=== PATIENT | female | born 1995 | race Two or more races ===

== ENCOUNTER 2017-08-21 17:45 | Emergency (ER) | payer OTHER, MEDICAID ==
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
[2017-08-21 19:54] VITALS: BP 117/67
== END 2017-08-21 20:10 | disposition home or self-care (01) ==
LOC: ER 17:45
DX: O9A.211 Injury, poisoning and certain other consequences of external causes complicating pregnancy, first trimester (principal); S40.011A Contusion of right shoulder, initial encounter; S30.1XXA Contusion of abdominal wall, initial encounter; M25.552 Pain in left hip; V89.2XXA Person injured in unspecified motor-vehicle accident, traffic, initial encounter; Z87.891 Personal history of nicotine dependence
CPT/HCPCS: 99283

== ENCOUNTER 2017-08-27 17:18 | Emergency (ER) | payer MEDICAID, OTHER ==
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
[2017-08-27 19:10] LABS: ABSOLUTE BASOPHILS # (AUTO) 0.1 10^3/uL (0.0-0.2); ABSOLUTE EOSINOPHILS # (AUTO) 0.2 10^3/uL (0.0-0.6); ABSOLUTE LYMPHOCYTES (AUTO) 2.1 10^3/uL (0.5-4.7); ABSOLUTE MONOCYTES (AUTO) 0.8 10^3/uL (0.1-1.4); ABSOLUTE NEUT (AUTO) 9.5 10^3/uL (1.7-8.2); BASOPHILS % (AUTO) 0.4 % (0-2); EOSINOPHILS % (AUTO) 1.9 % (0-6); HEMATOCRIT 40.6 % (36.0-47.0); HEMOGLOBIN 13.8 g/dL (12.0-15.5); LYMPHOCYTES % (AUTO) 16.6 % (13-45); MEAN CORPUSCULAR HEMOGLOBIN 31.6 pg (27.0-33.4); MEAN CORPUSCULAR HGB CONC 34.1 g/dL (32.0-36.0); MEAN CORPUSCULAR VOLUME 93 fl (80-97); MONOCYTES % (AUTO) 6.2 % (3-13); PLATELET COUNT 295 10^3/uL (150-450); RED BLOOD COUNT 4.38 10^6/uL (3.72-5.28); RED CELL DISTRIBUTION WIDTH 13.6 % (11.5-14.0); SEGMENTED NEUTROPHILS % (AUTO) 74.9 % (42-78); TOTAL CELLS COUNTED % (AUTO) 100 %; WHITE BLOOD COUNT 12.7 10^3/uL (4.0-10.5)
[2017-08-27 19:28] LABS: ALANINE AMINOTRANSFERASE 19 U/L (9-52); ALBUMIN 4.2 g/dL (3.5-5.0); ALKALINE PHOSPHATASE 62 U/L (38-126); ANION GAP 10 (5-19); ASPARTATE AMINO TRANSFERASE 20 U/L (14-36); BILIRUBIN,DIRECT 0.3 mg/dL (0.0-0.4); BILIRUBIN,TOTAL 0.4 mg/dL (0.2-1.3); BLOOD UREA NITROGEN 9 mg/dL (7-20); CALCIUM 9.9 mg/dL (8.4-10.2); CARBON DIOXIDE 25 mmol/L (22-30); CHLORIDE 106 mmol/L (98-107); GLUCOSE 84 mg/dL (75-110); POTASSIUM 4.1 mmol/L (3.6-5.0); SODIUM 140.5 mmol/L (137-145)
[2017-08-27 19:56] LABS: APPEARANCE,URINE CLEAR; BILIRUBIN,URINE NEGATIVE (NEGATIVE); COLOR,URINE STRAW; GLUCOSE, URINE NEGATIVE (NEGATIVE); KETONES,URINE NEGATIVE (NEGATIVE); LEUKOCYTE ESTERASE,URINE SMALL (NEGATIVE); NITRITE,URINE NEGATIVE (NEGATIVE); PROTEIN,URINE NEGATIVE (NEGATIVE); URINE SPECIFIC GRAVITY 1.003; UROBILINOGEN,URINE NEGATIVE mg/dL (<2.0)
--- NOTE | 2017-08-27 21:44 | RADIOLOGY REPORT (SQ) ---
EXAM DESCRIPTION: U/S OB TRANSVAGINAL W/O DOP COMPLETED DATE/TIME: 08/27/2017 9:05 pm REASON FOR STUDY: pelvic pain vaginal bleeding COMPARISON: None. TECHNIQUE: Transvaginal static and realtime grayscale images acquired of the pelvis. Additional janeth cted spectral and color Doppler images recorded. All images stored on PACs. [id number] LIMITATIONS: None. FINDINGS: FETUS: Intrauterine . EGA: 6 weeks 4 days CHUCK: 04/18/2018 FHR: Not identified at this time. SUBCHORIONIC BLEED: No SIZE OF BLEED: Not applicable. UTERUS: No masses. No anomalies. CERVICAL LENGTH: 2.6 cm Closed. RIGHT ADNEXA: Ovary not identified. No adnexal free fluid. No adnexal masses. LEFT ADNEXA: Ovary not identified. No adnexal free fluid. No adnexal masses. FREE FLUID: None. OTHER: No other significant finding. CERVICAL LENGTH: 2.6 cm Closed. IMPRESSION: INTRAUTERINE . FHR: Not identified at this time. EGA 6 weeks 4 days Trimester of : First - 0 to 13 weeks. TECHNICAL DOCUMENTATION: JOB ID: [id number] [place]-72 2010 [employer]- All Rights Reserved Reading location - IP/workstation name: Sun Number
[2017-08-27 22:42] VITALS: BP 125/70
== END 2017-08-27 22:30 | disposition home or self-care (01) ==
LOC: ER 17:18
DX: O46.91 Antepartum hemorrhage, unspecified, first trimester (principal); O26.891 Other specified pregnancy related conditions, first trimester; R10.2 Pelvic and perineal pain; F17.210 Nicotine dependence, cigarettes, uncomplicated; Z3A.01 Less than 8 weeks gestation of pregnancy
CPT/HCPCS: 36415; 76817; 80053; 81001; 84702; 85025; 99284; 99406

== ENCOUNTER 2018-02-16 23:06 | Emergency (ER) | payer MEDICAID ==
--- NOTE | 2018-02-17 00:40 | ER Document Report ---
ED General - General Chief Complaint: Painful Cough Stated Complaint: COUGHING UP BLOOD Time Seen by Provider: 02/17/18 00:31 Notes: Patient is a 22-year-old female presents with complaint of cough for approximately 3 days. Said with all the coughing she developed some pain in her left rib. She said whenever she moves or coughs it hurts. She is a smoker. She has history of asthma but has not had use inhaler since she was 12 years old. She says today she brought up some blood 3 times when she coughed. She said there were small clots. No fevers. No vomiting. No diarrhea. Her no other complaints at this time. She denies any travel outside the country. She does not work in a healthcare facility. TRAVEL OUTSIDE OF THE [place] IN LAST 30 DAYS: No - Related Data Allergies/Adverse Reactions: No Known Drug Allergies Allergy (Verified 08/27/17 17:19) Past Medical History - Social History Smoking Status: Current Every Day Smoker Chew tobacco use (# tins/day): No Frequency of alcohol use: None Drug Abuse: None Family History: CAD, Hyperlipidemia, Hypertension. denies: Arthritis, COPD, CVA , DM, Malignancy, Thyroid Disfunction Patient has suicidal ideation: No Patient has homicidal ideation: No Renal/ Medical History: Denies: Hx Peritoneal Dialysis Psychiatric Medical History: Reports: Hx Depression - Immunizations Immunizations up to date: Yes Hx Diphtheria, Pertussis, Tetanus Vaccination: Yes - 04/11/13 Review of Systems - Review of Systems Notes: My Normal Review Basic REVIEW OF SYSTEMS: CONSTITUTIONAL : Denies fever, chills, or sweats. Denies recent illness. EENT: Denies eye, ear, throat, or mouth pain or symptoms. Denies nasal or sinus congestion. CARDIOVASCULAR: Pain over left ribs. RESPIRATORY: Cough. GASTROINTESTINAL: Denies abdominal pain. Denies nausea, vomiting, or diarrhea. SKIN: Denies rash or skin lesions. NEUROLOGICAL: Denies altered mental status or loss of consciousness. Denies headache. Denies weakness or paralysis or loss of use of either side. Denies problems with gait or speech. Denies sensory or motor loss. ALL OTHER SYSTEMS REVIEWED AND NEGATIVE. Physical Exam - Vital signs Vitals: Temp Pulse Resp BP Pulse Ox 98.8 F 66 16 126/69 H 100 02/17/18 00:09 02/17/18 00:09 02/17/18 00:09 02/17/18 00:09 02/17/18 00:09 - Notes Notes: General Appearance: Well nourished, alert, cooperative, no acute distress, no obvious discomfort. Vitals: reviewed, See vital signs table. Head: no swelling or tenderness to the head Eyes: PERRL, EOMI, Conjuctiva clear Mouth: No decreasd moisture Throat: No tonsillar inflammation, No airway obstruction, Chest wall: Pain to palpation of her left lower ribs. Neck: Supple, no neck tenderness, No thyromegaly Lungs: No wheezing, No rales, No rhonci, No accessory muscle use, good air exchange bilaterally. Heart: Normal rate, Regular rythm, No murmur, no rub Skin: warm, dry, appropriate color, no rash Neuro: speech clear, oriented x 3, normal affect, responds appropriately to questions. Course - Re-evaluation Re-evalutation: 02/17/18 05:19 Patient does look very well during her stay in the ER. Lung feels just a very slight wheezing. I will give her albuterol inhaler. I informed her she needs to quit smoking. She has no risk factors for TB. Her chest x-ray is negative. And told her that she needs to quit smoking or she will continue have worsening difficulty breathing and future problems such as infections in her lungs. I suspect that the small amount of blood that she coughed up earlier is related to the frequent recurrent coughing that she has had over the last several days. The pain in her left side is very easily reproduced with palpation and is most likely irritation to her rib cage from recurrent coughing. I do not suspect PE as she is not tachypneic, not tachycardic, not hypoxemic, she does not have any leg pain or leg swelling. I informed her return to ER immediately if she has difficulty breathing, recurrent wheezing, recurrence of coughing up of blood, fevers, or she feels that she is worsening in any way. Patient agrees with plan will be discharged home. Dictation of this chart was performed using voice recognition software; therefore, there may be some unintended grammatical errors. - Vital Signs Vital signs: Temp Pulse Resp BP Pulse Ox 98.6 F 74 16 114/73 98 02/17/18 03:42 02/17/18 03:42 10/03/18 03:42 02/17/18 03:42 02/17/18 03:42 Discharge - Discharge Clinical Impression: Cough Condition: Good Disposition: HOME, SELF-CARE Additional Instructions: Please return to the ER immediately if you develop difficulty breathing, fevers , recurrence of bloody sputum, or if you feel that you are worsening in any way. Please use the inhaler as 2 puffs as needed for coughing or wheezing not to exceed 2 puffs every 2 hours. Please stop smoking. Forms: Return to Work
--- NOTE | 2018-02-17 03:00 | RADIOLOGY REPORT (SQ) ---
EXAM DESCRIPTION: XR CHEST 2 VIEWS COMPLETED DATE/TME: 02/17/2018 00:37 CLINICAL HISTORY: cough COMPARISON: None. FINDINGS: Frontal and lateral views of the chest. The cardiomediastinal silhouette has normal size and contour. No consolidation, pneumothorax, or pleural effusion. No displaced rib fractures identified. Upper abdominal soft tissues are unremarkable. IMPRESSION: 1. No acute pulmonary process identified.
[2018-02-17 03:42] VITALS: BP 114/73
[2018-02-17] MEDS ORDERED: ALBUTEROL SULFATE HFA (90 MCG/PUFF) 8 GM MDI (1 MDI/ER DISP) IH ONE (03:53)
== END 2018-02-17 04:01 | disposition home or self-care (01) ==
LOC: ER 23:06
DX: R05 Cough (principal); R06.2 Wheezing; F17.200 Nicotine dependence, unspecified, uncomplicated
CPT/HCPCS: 99283; 71046; J3490

== ENCOUNTER 2019-01-27 02:38 | Emergency (ER) | payer MEDICAID ==
[2019-01-27 02:46] VITALS: BP 109/62
[2019-01-27] MEDS ORDERED: NORMAL SALINE 1000 ML 1,000 ML IV PRN (04:48)
[2019-01-27] MEDS ORDERED: KETOROLAC TROMETHAMINE INJ/PF 30 MG/1 ML SDV IV ONE (04:48)
== END 2019-01-27 05:17 | disposition left against medical advice (07) ==
LOC: ER 02:38
DX: Z53.21 Procedure and treatment not carried out due to patient leaving prior to being seen by health care provider (principal)

== ENCOUNTER 2019-04-17 22:45 | Emergency (ER) | payer SELFPAY ==
--- NOTE | 2019-04-17 23:37 | EKG REPORT ---
SEVERITY:- BORDERLINE ECG - SINUS RHYTHM PROBABLE LEFT ATRIAL ABNORMALITY : Confirmed by: Tu Lorenzana 17-Apr-2019 23:34:38
[2019-04-17] MEDS ORDERED: NORMAL SALINE 1000 ML 1,000 ML IV ONE (23:50)
[2019-04-18 00:01] LABS: APPEARANCE,URINE SLIGHTLY-CLOUDY; BILIRUBIN,URINE NEGATIVE (NEGATIVE); COLOR,URINE YELLOW; GLUCOSE, URINE NEGATIVE (NEGATIVE); KETONES,URINE NEGATIVE (NEGATIVE); LEUKOCYTE ESTERASE,URINE NEGATIVE (NEGATIVE); NITRITE,URINE NEGATIVE (NEGATIVE); PROTEIN,URINE NEGATIVE (NEGATIVE); URINE SPECIFIC GRAVITY 1.016
[2019-04-18 00:04] LABS: ABSOLUTE EOSINOPHILS # (AUTO) 0.3 10^3/uL (0.0-0.6); ABSOLUTE LYMPHOCYTES (AUTO) 2.1 10^3/uL (0.5-4.7); ABSOLUTE MONOCYTES (AUTO) 0.7 10^3/uL (0.1-1.4); ABSOLUTE NEUT (AUTO) 4.5 10^3/uL (1.7-8.2); BASOPHILS % (AUTO) 0.5 % (0-2); EOSINOPHILS % (AUTO) 4.1 % (0-6); HEMATOCRIT 39.3 % (36.0-47.0); HEMOGLOBIN 13.5 g/dL (12.0-15.5); LYMPHOCYTES % (AUTO) 27.3 % (13-45); MEAN CORPUSCULAR HEMOGLOBIN 30.9 pg (27.0-33.4); MEAN CORPUSCULAR HGB CONC 34.4 g/dL (32.0-36.0); MEAN CORPUSCULAR VOLUME 90 fl (80-97); PLATELET COUNT 269 10^3/uL (150-450); RED BLOOD COUNT 4.38 10^6/uL (3.72-5.28); RED CELL DISTRIBUTION WIDTH 14.1 % (11.5-14.0); SEGMENTED NEUTROPHILS % (AUTO) 59.1 % (42-78); TOTAL CELLS COUNTED % (AUTO) 100 %; WHITE BLOOD COUNT 7.5 10^3/uL (4.0-10.5)
[2019-04-18 00:07] LABS: ALBUMIN 3.8 g/dL (3.5-5.0); ALKALINE PHOSPHATASE 64 U/L (38-126); ANION GAP 10 (5-19); ASPARTATE AMINO TRANSFERASE 108 U/L (14-36); BILIRUBIN,DIRECT 0.3 mg/dL (0.0-0.4); BILIRUBIN,TOTAL 0.9 mg/dL (0.2-1.3); BLOOD UREA NITROGEN 12 mg/dL (7-20); CARBON DIOXIDE 21 mmol/L (22-30); CHLORIDE 108 mmol/L (98-107); GLUCOSE 88 mg/dL (75-110); POTASSIUM 3.5 mmol/L (3.6-5.0); TOTAL PROTEIN 6.8 g/dL (6.3-8.2)
[2019-04-18 00:12] LABS: ACETAMINOPHEN < 10 ug/mL (10-30); ALCOHOL < 10 mg/dL (NONE DETECTED); SALICYLATE < 1.0 mg/dL (2.0-20.0)
[2019-04-18 00:14] LABS: URINE BARBITURATES SCREEN NEGATIVE; URINE BENZODIAZEPINES SCREEN NEGATIVE; URINE METHADONE SCREEN NEGATIVE; URINE PHENCYCLIDINE SCREEN NEGATIVE
[2019-04-18 00:25] LABS: URINE COCAINE SCREEN UNCONFIRMED POSITIVE
[2019-04-18 00:27] LABS: URINE MARIJUANA (THC) SCREEN UNCONFIRMED POSITIVE
--- NOTE | 2019-04-18 01:13 | ER Document Report ---
ED General - General Chief Complaint: Overdose Stated Complaint: POSSIBLE OVERDOSE Time Seen by Provider: 04/17/19 23:26 TRAVEL OUTSIDE OF THE [place] IN LAST 30 DAYS: No - HPI Notes: Patient is a 23-year-old female who presents emergency department for evaluation after an overdose. She is an IV heroin user. She also admits to marijuana use. She injected with her boyfriend, who noted that she "fell out" and started CPR. She was administered Narcan and brought to the emergency department for further evaluation. The patient states this is a new bag of heroin, it seemed "whiter" and some of the other bags she is used in the past. She has absolutely no interest in getting any information in regards to quitting her drug use. She denies any suicidal or homicidal ideation. No visual auditory hallucination. - Related Data Allergies/Adverse Reactions: No Known Drug Allergies Allergy (Verified 01/27/19 02:39) Past Medical History - General Information source: Patient - Social History Smoking Status: Current Every Day Smoker Drug Abuse: Heroin, Marijuana Family History: CAD, Hyperlipidemia, Hypertension. denies: Arthritis, COPD, CVA, DM, Malignancy, Thyroid Disfunction Patient has suicidal ideation: No Patient has homicidal ideation: No Pulmonary Medical History: Reports: Hx Asthma Renal/ Medical History: Denies: Hx Peritoneal Dialysis Psychiatric Medical History: Reports: Hx Depression - Immunizations Immunizations up to date: Yes Hx Diphtheria, Pertussis, Tetanus Vaccination: Yes - 04/11/13 Review of Systems - Review of Systems Constitutional: No symptoms reported Cardiovascular: No symptoms reported Respiratory: See HPI Gastrointestinal: No symptoms reported Genitourinary: No symptoms reported Musculoskeletal: No symptoms reported Skin: No symptoms reported Neurological/Psychological: See HPI Physical Exam - Vital signs Vitals: Temp 98.3 F 04/17/19 22:50 - Notes Notes: This is a 23-year-old female who appears her stated age, in no acute distress. She is awake and alert, cooperative with examiner. Vital signs reviewed, please refer to chart. Head is normocephalic, atraumatic. Pupils equal round, reactive to light. Neck is supple without meningismus. Heart is regular rate and rhythm. Lungs are clear to auscultation bilaterally. Abdomen is soft, nontender, normoactive bowel sounds throughout. Extremities without cyanosis, clubbing. Posterior calves are nontender. Peripheral pulses are equal. Skin is warm and dry. Patient is awake, alert, neurological exam is nonfocal. Course - Re-evaluation Re-evalutation: 04/18/19 01:11 Patient presents emergency department for evaluation. Laboratory investigations were obtained, the patient was placed on monitor. Labs revealed a positive screen for cocaine and marijuana, negative for opiates. I explained to the patient that she should try to consider quitting using illicit drugs. She states she is not interested in any sort of outpatient treatment programs at this time. She is to follow-up with primary care, return to the ED with worsening or concerning symptoms of any sort. - Vital Signs Vital signs: Temp Pulse Resp BP Pulse Ox 98.3 F 19 135/86 H 98 04/17/19 22:50 04/17/19 23:01 04/17/19 23:00 04/17/19 23:01 - Laboratory Result Diagrams: 04/17/19 22:55 04/17/19 22:55 Laboratory results interpreted by me: 04/17/19 04/17/19 04/17/19 22:55 22:55 23:25 RDW 14.1 H Potassium 3.5 L Chloride 108 H Carbon Dioxide 21 L AST 108 H Urine Urobilinogen 4.0 H Salicylates < 1.0 L Acetaminophen < 10 L - EKG Interpretation by Me Additional EKG results interpreted by me: 04/18/19 01:12 Sinus mechanism with a rate of 91 bpm. Normal axis and intervals. Nonspecific ST changes, but no acute changes concerning for ischemia or infarction. Discharge - Discharge Clinical Impression: Opiate overdose Qualifiers: Encounter type: initial encounter Injury intent: accidental or unintentional Qualified Code(s): T40.601A - Poisoning by unspecified narcotics, accidental (unintentional), initial encounter Condition: Stable Disposition: HOME, SELF-CARE Instructions: Overdose ([facility]) Additional Instructions: Please consider quitting using drugs. Follow-up with primary care next week. Return to the ED with worsening or new concerning symptoms of any sort.
[2019-04-18 01:21] VITALS: BP 141/81
== END 2019-04-18 01:25 | disposition home or self-care (01) ==
LOC: ER 22:45
DX: T40.1X1A Poisoning by heroin, accidental (unintentional), initial encounter (principal); F12.10 Cannabis abuse, uncomplicated; F17.200 Nicotine dependence, unspecified, uncomplicated; J45.909 Unspecified asthma, uncomplicated
CPT/HCPCS: 93005; 99284; 96360; 36415; 80307 ×4; 84703; 85025; 80053; 81001; 93010; J7030

== ENCOUNTER 2019-07-05 04:53 | Emergency (ER) | payer SELFPAY ==
[2019-07-05] MEDS ORDERED: FAMOTIDINE INJ/PF 20 MG/2 ML SDV IV ONE (05:03)
[2019-07-05] MEDS ORDERED: METHYLPREDNISOLONE INJ 125 MG/2 ML SDV IV ONE (05:03)
[2019-07-05] MEDS ORDERED: DIPHENHYDRAMINE HCL 50 MG/ML VIAL IV ONE (05:03)
[2019-07-05] MEDS ORDERED: EPINEPHRINE INJ/PF 1 MG/1 ML AMPULE IM ONE (05:05)
[2019-07-05] MEDS ORDERED: NORMAL SALINE 1000 ML 1,000 ML IV ONE (05:42)
--- NOTE | 2019-07-05 06:04 | ER Document Report ---
ED General - General Chief Complaint: Allergic Reaction Stated Complaint: POSSIBLE ALLERGIC REACTION Time Seen by Provider: 07/05/19 05:03 Notes: 24 year old female presents to the ED complaining of burning skin, shortness of breath and difficulty swallowing after spraying a spray to help treat lice all over her house. She states she sprayed it earlier in the day and thinks she may have sat in it too long. States that her symptoms only started approximately 15 minutes prior to arrival. Has no history of allergic reaction. TRAVEL OUTSIDE OF THE [place] IN LAST 30 DAYS: No - Related Data Allergies/Adverse Reactions: No Known Drug Allergies Allergy (Verified 01/27/19 02:39) Past Medical History - General Information source: Patient - Social History Smoking Status: Current Every Day Smoker Drug Abuse: Heroin Family History: CAD, Hyperlipidemia, Hypertension. denies: Arthritis, COPD, CVA, DM, Malignancy, Thyroid Disfunction Patient has suicidal ideation: No Patient has homicidal ideation: No Pulmonary Medical History: Reports: Hx Asthma Renal/ Medical History: Denies: Hx Peritoneal Dialysis Psychiatric Medical History: Reports: Hx Depression - Immunizations Immunizations up to date: Yes Hx Diphtheria, Pertussis, Tetanus Vaccination: Yes - 04/11/13 Review of Systems - Review of Systems Constitutional: No symptoms reported EENT: See HPI, Difficulty swallowing Respiratory: See HPI, Short of breath Gastrointestinal: No symptoms reported Skin: See HPI -: Yes All other systems reviewed and negative Physical Exam - Vital signs Vitals: Resp Pulse Ox 26 H 91 L 07/05/19 05:05 07/05/19 05:05 Interpretation: Tachycardic, Hypoxic - Notes Notes: GENERAL: Alert, interacts well. Anxious. HEAD: Normocephalic, atraumatic. Nits noted in hair. EYES: Pupils equal, round and reactive to light, extraocular movements intact. ENT: Oral mucosa moist, tongue midline. No airway swelling, no pooling of secretions. NECK: Full range of motion, supple, trachea midline. LUNGS: Clear to auscultation bilaterally, no wheezes, rales or rhonchi, no respiratory distress. HEART: Tachycardic rate and rhythm, no murmurs, gallops, rubs. ABDOMEN: Soft, nontender, nondistended, bowel sounds present in all 4 quadrants. EXTREMITIES: Moves all 4 extremities spontaneously, no edema, radial and dorsalis pedis pulses 2/4 bilaterally. No cyanosis. NEUROLOGICAL: Alert and oriented x3, normal speech. PSYCH: Anxious. SKIN: Hot, flushed, erythematous, diffuse hives. Course - Re-evaluation Re-evalutation: 07/05/19 06:13 Was placed on monitor the patient was revealed to be hypoxic in addition to her tachycardia, given her diffuse urticarial lesions and complaints of difficulty breathing and swallowing patient is treated for anaphylaxis using epinephrine 0.3 mg IM as well as Pepcid, Benadryl and Solu-Medrol. After 10 minutes patient's heart rate has decreased significantly, she is no longer hypoxic, she has never been hypotensive, respiratory rate is somewhat and hives are improving although they have not completely resolved. Patient states that her breathing is significantly improved. 07/05/19 06:32 Rechecked again, hives continue to improve, there are still some, patient no longer requires oxygen. No difficulty breathing, no difficulty swallowing. Patient will be discharged if an hour after receiving the epinephrine she has had no worsening. Patient has been prescribed Benadryl, Claritin, Pepcid and prednisone. Discharged home. - Vital Signs Vital signs: Temp Pulse Resp BP Pulse Ox 98.7 F 18 131/74 H 100 07/05/19 05:15 07/05/19 06:01 07/05/19 06:01 07/05/19 06:01 Discharge - Discharge Clinical Impression: Head lice infestation Anaphylactic reaction Qualifiers: Encounter type: initial encounter Qualified Code(s): T78.2XXA - Anaphylactic shock, unspecified, initial encounter Condition: Stable Disposition: HOME, SELF-CARE Additional Instructions: Anaphylaxis Kit Use your anaphylaxis kit for life-threatening allergic reactions. It can be carried with you. After using the kit, you should get immediate medical attention. The kit contains a syringe with epinephrine for injection. Expected side effects of epinephrine are rapid heartbeat, shakiness, weakness, and occasionally headache or nausea. These symptoms develop within minutes of the injection, and usually wear off within 30 minutes. Review the instructions in the kit carefully. Be sure you know how to use it properly. Check the expiration date, and replace an unused kit before it expires. If you haven't used an anaphylaxis kit before and the pharmacist can't teach you, please return here when you've filled the prescription. We'll show you how to use it. You had an allergic reaction tonight. It was likely to the spray that she used. Please check and see exactly what was in that spray. You may use Benadryl up to 2 tablets every 4 hours as needed to help with itching and hives. You should take Pepcid 20 mg twice a day until the hives have gone completely away. You may also take Claritin 10 mg once a day while you are still having hives. Please take the prednisone as directed until it is gone. I have prescribed the epinephrine autoinjector. If you start developing difficulty breathing please give yourself the epinephrine immediately and come to the emergency department. Prescriptions: Prednisone [Deltasone 10 mg Tablet] 10 mg PO ASDIR PRN #21 tablet PRN Reason: Epinephrine 0.3 mg IJ PRN PRN #1 auto.injct PRN Reason: allergic reaction
[2019-07-05 07:06] VITALS: BP 123/75
== END 2019-07-05 07:06 | disposition home or self-care (01) ==
LOC: ER 04:53
DX: B85.0 Pediculosis due to Pediculus humanus capitis (principal); T78.2XXA Anaphylactic shock, unspecified, initial encounter; R06.02 Shortness of breath; R13.10 Dysphagia, unspecified; X58.XXXA Exposure to other specified factors, initial encounter; Y92.009 Unspecified place in unspecified non-institutional (private) residence as the place of occurrence of the external cause; F17.200 Nicotine dependence, unspecified, uncomplicated
CPT/HCPCS: J1200; J0171; J2930; J7030; S0028; 96361; 96372; 96374; 96375; 99283

== ENCOUNTER 2019-10-04 20:21 | Emergency (ER) | payer SELFPAY ==
[2019-10-04] MEDS ORDERED: LIDOCAINE 1%/EPINEPHRINE INJ 20 ML VIAL INJ ONE (22:55)
[2019-10-04] MEDS ORDERED: PROMETHAZINE HCL 25 MG TABLET PO ONE (22:55)
[2019-10-04 22:58] VITALS: BP 147/78
--- NOTE | 2019-10-04 23:00 | ER Document Report ---
ED General - General Chief Complaint: Abscess Stated Complaint: MASS UNDER LEFT ARM Time Seen by Provider: 10/04/19 22:43 Notes: Patient is a 24-year-old female that comes to the emergency department for chief complaint of abscess in the left axillary space. She states this is been worsening over the past several days. Patient states that she actually started getting some upper abdominal pain and vomited 3 times today in addition to the abscess, she states that she also is getting the "sulfur burps". She denies previous history of reflux. She denies any particular abdominal pain at this time. She denies flank pain, fever, abnormal bowel movements, difficulty breathing, chest pain, or any other complaints. Patient does admit to IV drug abuse including heroin over the past 24 hours. Patient states her vaccination is up-to-date. She has no diagnosed medical history. LMP within the past month. TRAVEL OUTSIDE OF THE [place] IN LAST 30 DAYS: No - Related Data Allergies/Adverse Reactions: No Known Drug Allergies Allergy (Verified 10/04/19 22:40) Past Medical History - General Information source: Patient - Social History Smoking Status: Current Every Day Smoker Chew tobacco use (# tins/day): No Frequency of alcohol use: Occasional Drug Abuse: Heroin Family History: CAD, Hyperlipidemia, Hypertension. denies: Arthritis, COPD, CVA, DM, Malignancy, Thyroid Disfunction Patient has homicidal ideation: No Pulmonary Medical History: Reports: Hx Asthma Renal/ Medical History: Denies: Hx Peritoneal Dialysis Psychiatric Medical History: Reports: Hx Depression Surgical Hx: Negative - Immunizations Immunizations up to date: Yes Hx Diphtheria, Pertussis, Tetanus Vaccination: Yes - 04/11/13 Review of Systems - Review of Systems Constitutional: No symptoms reported EENT: No symptoms reported Cardiovascular: No symptoms reported Respiratory: No symptoms reported Gastrointestinal: See HPI Genitourinary: No symptoms reported Female Genitourinary: No symptoms reported Musculoskeletal: No symptoms reported Skin: See HPI Hematologic/Lymphatic: No symptoms reported Neurological/Psychological: No symptoms reported Physical Exam - Vital signs Vitals: Temp Pulse Resp BP Pulse Ox 98.5 F 88 18 147/78 H 100 10/04/19 22:44 10/04/19 22:44 10/04/19 22:44 10/04/19 22:44 10/04/19 22:44 - Notes Notes: GENERAL: Alert, interacts well. No acute distress. HEAD: Normocephalic, atraumatic. EYES: Pupils equal, round, and reactive to light. Extraocular movements intact. ENT: Oral mucosa moist, tongue midline. Oropharynx unremarkable. Airway patent. NECK: Full range of motion. Supple. Trachea midline. No lymphadenopathy. LUNGS: Clear to auscultation bilaterally, no wheezes, rales, or rhonchi. No respiratory distress. Non-tender chest wall. HEART: Regular rate and rhythm. No murmur ABDOMEN: Soft, non-tender. Non-distended. Bowel sounds present in all 4 quadrants. GENITOURINARY: Deferred EXTREMITIES: Moves all 4 extremities spontaneously. No edema, normal radial and dorsalis pedis pulses bilaterally. No cyanosis. BACK: no cervical, thoracic, lumbar midline tenderness. No saddle anesthesia, normal distal neurovascular exam. Moves all extremities in full range of motion. NEUROLOGICAL: Alert and oriented x3. Normal speech. Cranial nerves II through XII grossly intact. Strength 5/5 in all extremities. PSYCH: Normal affect, normal mood. SKIN: There is an indurated fluctuant area under the left axilla consistent with an abscess but there is no significant surrounding cellulitis, nearby lymphadenopathy, or other concerning signs of infection. Patient does have track ochoa in the antecubital spaces without signs of cellulitis or infection. Course - Re-evaluation Re-evalutation: Patient tolerated p.o. without difficulty. CBC, chemistry, urinalysis, test nonspecific except for slightly elevated LFTs. Because of patient's history of IV drug abuse I did discuss this with her and we did decide to proceed with hepatitis panel. I also discussed IV drug abuse, extreme dangers, and detox which she will be provided with referral for. Patient was very open to conversation about this. She states understanding and agreement. Patient is afebrile, well-appearing, her abdomen is soft and benign, vital signs otherwise unremarkable, she is talkative and alert. Abscess drained, dressed, discussed antibiotics, abscess care, follow-up, return precautions. Patient states understanding and agreement. - Vital Signs Vital signs: Temp Pulse Resp BP Pulse Ox 98.5 F 88 18 147/78 H 100 10/04/19 22:48 10/04/19 22:44 10/04/19 22:44 10/04/19 22:44 10/04/19 22:44 - Laboratory Result Diagrams: 10/04/19 23:09 10/04/19 23:09 Laboratory results interpreted by me: 10/04/19 10/04/19 10/04/19 23:09 23:09 23:09 WBC 11.1 H Sodium 134.8 L Potassium 3.4 L Glucose 149 H AST 78 H ALT 115 H Urine Urobilinogen 4.0 H Procedures - Incision and Drainage left axilla Type: Single Anesthetic type: 1% Lidocaine w/epi Incision Method: Incision made by scalpel Amount/type of drainage: small amount of purulent drainage Notes: Area was cleaned with surgical cleanser, anesthesia provided with lidocaine with epinephrine, incision was made, purulent drainage was expressed without any significant bloody drainage, area was explored, cleaned, dressed. Patient tolerated very well. Discharge - Discharge Clinical Impression: Abscess Vomiting Qualifiers: Vomiting type: unspecified Vomiting Intractability: non-intractable Nausea pres ence: with nausea Qualified Code(s): R11.2 - Nausea with vomiting, unspecified Condition: Stable Disposition: HOME, SELF-CARE Additional Instructions: The abscess has been drained. Keep clean, clean with soap and water, keep absorbent gauze dressing over the area. Take the antibiotics as prescribed, take the Phenergan if needed for nausea. Your work-up does not show any concerning findings except slightly elevated liver function tests, we do have pending tests that if they are positive you will be contacted with the results. Return if you worsen including developing or spreading redness, fever, severe worsening abdominal pain, uncontrolled vomiting, or any other concerning or worsening symptoms. Do not continue injecting drugs, these are extremely dangerous and will lead to your . Follow up with the detox center for opiate dependence/withdrawals. See referral listed below. [facility] [address] [place] [address] , [place] [address] Hours: Open 24 hours Prescriptions: Sulfamethoxazole/Trimethoprim [Bactrim Ds Tablet] 1 each PO BID #14 tablet Promethazine HCl [Phenergan 25 mg Tablet] 25 mg PO Q6H PRN #15 tablet PRN Reason:
[2019-10-04 23:28] LABS: ABSOLUTE EOSINOPHILS # (AUTO) 0.3 10^3/uL (0.0-0.6); ABSOLUTE LYMPHOCYTES (AUTO) 1.7 10^3/uL (0.5-4.7); BASOPHILS % (AUTO) 0.1 % (0-2); EOSINOPHILS % (AUTO) 2.4 % (0-6); HEMATOCRIT 37.9 % (36.0-47.0); LYMPHOCYTES % (AUTO) 15.7 % (13-45); MEAN CORPUSCULAR HEMOGLOBIN 31.7 pg (27.0-33.4); MEAN CORPUSCULAR HGB CONC 34.2 g/dL (32.0-36.0); MEAN CORPUSCULAR VOLUME 93 fl (80-97); MONOCYTES % (AUTO) 9.3 % (3-13); PLATELET COUNT 281 10^3/uL (150-450); RED BLOOD COUNT 4.09 10^6/uL (3.72-5.28); RED CELL DISTRIBUTION WIDTH 13.9 % (11.5-14.0); SEGMENTED NEUTROPHILS % (AUTO) 72.5 % (42-78); TOTAL CELLS COUNTED % (AUTO) 100 %; WHITE BLOOD COUNT 11.1 10^3/uL (4.0-10.5)
[2019-10-04 23:34] LABS: AMORPHOUS SEDIMENT,URINE TRACE /HPF; APPEARANCE,URINE TURBID; BILIRUBIN,URINE NEGATIVE (NEGATIVE); COLOR,URINE YELLOW; GLUCOSE, URINE NEGATIVE (NEGATIVE); KETONES,URINE NEGATIVE (NEGATIVE); LEUKOCYTE ESTERASE,URINE NEGATIVE (NEGATIVE); NITRITE,URINE NEGATIVE (NEGATIVE); PROTEIN,URINE NEGATIVE (NEGATIVE); URINE SPECIFIC GRAVITY 1.017
[2019-10-04 23:46] LABS: ALBUMIN 3.7 g/dL (3.5-5.0); ALKALINE PHOSPHATASE 75 U/L (38-126); ANION GAP 6 (5-19); ASPARTATE AMINO TRANSFERASE 78 U/L (14-36); BILIRUBIN,TOTAL 0.3 mg/dL (0.2-1.3); BLOOD UREA NITROGEN 8 mg/dL (7-20); CALCIUM 8.7 mg/dL (8.4-10.2); CARBON DIOXIDE 28 mmol/L (22-30); CHLORIDE 101 mmol/L (98-107); GLUCOSE 149 mg/dL (75-110); POTASSIUM 3.4 mmol/L (3.6-5.0); TOTAL PROTEIN 6.6 g/dL (6.3-8.2)
[2019-10-05] MEDS ORDERED: OXYCODONE HCL IR 5 MG TABLET PO ONE (00:35)
[2019-10-06 06:36] LABS: HEPATITS B SURFACE ANTIGEN Negative (Negative)
[2019-10-06 07:09] LABS: HEPATITIS C VIRUS ANTIBODY >11.0 s/co ratio (0.0-0.9)
== END 2019-10-05 02:04 | disposition home or self-care (01) ==
LOC: ER 20:21
PROC: 0H9CXZZ Drainage of Left Upper Arm Skin, External Approach (ICD-10-PCS; principal; 2019-10-04)
DX: L02.412 Cutaneous abscess of left axilla (principal); R11.2 Nausea with vomiting, unspecified; R10.10 Upper abdominal pain, unspecified; F17.200 Nicotine dependence, unspecified, uncomplicated; J45.909 Unspecified asthma, uncomplicated
CPT/HCPCS: 99283; 36415; 83690; 85025; 81025; 80053; 81001; 80074; 10060; J3490

== ENCOUNTER 2019-12-08 05:11 | Emergency (ER) | payer SELFPAY ==
[2019-12-08] MEDS ORDERED: LORAZEPAM INJ 2 MG/1 ML VIAL IV ONE (05:15)
[2019-12-08] MEDS ORDERED: NORMAL SALINE 1000 ML 1,000 ML IV PRN (05:15)
--- NOTE | 2019-12-08 05:22 | ER Document Report ---
ED Medical Screen (RME) - General Stated Complaint: POSS OVERDOSE TRAVEL OUTSIDE OF THE [place] IN LAST 30 DAYS: No - HPI Notes: 12/08/19 05:18 24-year-old female history of IV heroin use presents with vomiting and whole body shaking and complaint of shortness of breath after using IV heroin. History limited by patient status. Patient accompanied by friend who says that patient was in normal state of health and he went into the bathroom to check on patient and she had used IV heroin and then began vomiting and saying that she was short of breath. Patient now saying that she has pain but points to suprapubic area. Patient denies chest pain, recent illness, fever, cough, or episodes, other medical history. - Related Data Allergies/Adverse Reactions: No Known Drug Allergies Allergy (Verified 10/04/19 22:40) Past Medical History - General Information source: Patient, Friend Pulmonary Medical History: Reports: Hx Asthma Renal/ Medical History: Denies: Hx Peritoneal Dialysis Psychiatric Medical History: Reports: Hx Depression - Immunizations Immunizations up to date: Yes Hx Diphtheria, Pertussis, Tetanus Vaccination: Yes - 04/11/13 Review of Systems - Review of Systems -: Yes ROS unobtainable due to patient's medical condition Physical Exam - Notes Notes: Young adult female with eyes closed but easily arouses to voice with all body shaking, answering questions appropriately, mildly tachycardic otherwise normal vitals. Lungs clear to auscultation bilaterally, normal respiratory rate and effort, no abdominal tenderness, no signs of trauma. Course - Re-evaluation Re-evalutation: 12/08/19 05:21 Presentation concerning for possible sympathomimetic contaminant in heroin as presentation not consistent with heroin overdose, possible embolic disease from IVDU/PE, but patient with normal respiratory status currently and will defer decision for imaging to treating provider. Heart rate now normal, tremulousness improved with Ativan. Hemodynamically stable.
[2019-12-08 05:40] LABS: ABSOLUTE BASOPHILS # (AUTO) 0.1 10^3/uL (0.0-0.2); ABSOLUTE EOSINOPHILS # (AUTO) 0.1 10^3/uL (0.0-0.6); ABSOLUTE LYMPHOCYTES (AUTO) 5.5 10^3/uL (0.5-4.7); ABSOLUTE MONOCYTES (AUTO) 0.9 10^3/uL (0.1-1.4); ABSOLUTE NEUT (AUTO) 7.7 10^3/uL (1.7-8.2); BASOPHILS % (AUTO) 0.4 % (0-2); EOSINOPHILS % (AUTO) 0.4 % (0-6); HEMATOCRIT 45.4 % (36.0-47.0); HEMOGLOBIN 15.4 g/dL (12.0-15.5); LYMPHOCYTES % (AUTO) 39.1 % (13-45); MEAN CORPUSCULAR HEMOGLOBIN 30.1 pg (27.0-33.4); MEAN CORPUSCULAR HGB CONC 33.9 g/dL (32.0-36.0); MEAN CORPUSCULAR VOLUME 89 fl (80-97); PLATELET COUNT 468 10^3/uL (150-450); RED BLOOD COUNT 5.12 10^6/uL (3.72-5.28); RED CELL DISTRIBUTION WIDTH 13.9 % (11.5-14.0); SEGMENTED NEUTROPHILS % (AUTO) 54.1 % (42-78); TOTAL CELLS COUNTED % (AUTO) 100 %; WHITE BLOOD COUNT 14.2 10^3/uL (4.0-10.5)
[2019-12-08 05:56] LABS: INTERNATIONAL RATION (INR) 1.04; PROTHROMBIN TIME 13.6 SEC (11.4-15.4)
[2019-12-08 05:57] LABS: PARTIAL THROMBOPLASTIN TIME 25.5 SEC (23.5-35.8)
--- NOTE | 2019-12-08 05:58 | ER Document Report ---
ED General - General Chief Complaint: Possible Overdose Stated Complaint: POSS OVERDOSE Time Seen by Provider: 12/08/19 05:34 Primary Care Provider: [facility] [Outside] - Follow up as needed Notes: 24-year-old female active heroin user 3-4 bags a day presents with sleepiness tachycardia. Called by family after she took a dose of heroin. She feels more sleepy and thinks he may have been something else in the drugs. No drinking no history of withdrawal no abscesses or fevers. TRAVEL OUTSIDE OF THE [place] IN LAST 30 DAYS: No - Related Data Allergies/Adverse Reactions: No Known Drug Allergies Allergy (Verified 10/04/19 22:40) Past Medical History - General Information source: Patient, Friend - Social History Smoking Status: Current Every Day Smoker Smoking Education Provided: Yes - The patient ED visit today was directly related to their abuse of tobacco. Family History: CAD, Hyperlipidemia, Hypertension. denies: Arthritis, COPD, CVA, DM, Malignancy, Thyroid Disfunction Pulmonary Medical History: Reports: Hx Asthma Renal/ Medical History: Denies: Hx Peritoneal Dialysis Psychiatric Medical History: Reports: Hx Depression - Immunizations Immunizations up to date: Yes Hx Diphtheria, Pertussis, Tetanus Vaccination: Yes - 04/11/13 Review of Systems - Review of Systems Notes: REVIEW OF SYSTEMS GEN: Chills malaise ENT: Denies sore throat, nasal discharge, ear pain EYES: Denies blurry vision, eye pain, discharge CV: Denies chest pain, palpitations, edema RESP: Denies cough, shortness of breath, wheezing GI: Denies abdominal pain, nausea, vomiting, diarrhea MSK: Denies joint pain/swelling, edema, SKIN: Denies rash, skin lesions LYMPH: Denies swollen glands/lymph nodes NEURO: Denies headache, focal weakness or numbness, dizziness PSYCH: Denies depression, suicidal or homicidal ideation PHYSICAL EXAMINATION General: No acute distress, well-nourished Head: Atraumatic, normocephalic ENT: Mouth normal, oropharynx dry no exudates or tonsillar enlargement Eyes: Conjunctiva normal, pupils equal, lids normal Neck: No JVD, supple, no guarding CVS: Tachycardic, regular rhythm, no murmurs Resp: No resp distress, equal and normal breath sounds bilaterally GI: Nondistended, soft, no tenderness to palpation, no rebound or guarding Ext: No deformities, no edema, normal range of motion in upper and lower ext Back: No CVA or midline TTP Skin: No rash, warm Lymphatic: No lymphadeopathy noted Neuro: Awake, alert. Face symmetric. GCS 15. Physical Exam - Vital signs Vitals: Resp Pulse Ox 24 H 99 12/08/19 05:11 12/08/19 05:11 Course - Re-evaluation Re-evalutation: 12/08/19 05:56 Para intoxication versus withdrawal versus stimulant tox occasion versus dehydration versus some combination of the above Fluids, given Ativan already by previous provider, labs of been ordered. 12/08/19 15:18 Observed. Mild leukocytosis understandable given her situation Clinically improved quite rapidly discussed with social work for safe home discharge and discharged with Narcan prescription I I have discussed with the patient there likely diagnosis, aftercare plan, follow-up plans and my usual and customary return precautions. They verbalized understanding of this. - Vital Signs Vital signs: Temp Pulse Resp BP Pulse Ox 98.9 F 20 117/74 100 12/08/19 05:24 12/08/19 08:01 12/08/19 08:00 12/08/19 08:01 - Laboratory Result Diagrams: 12/08/19 05:13 12/08/19 06:22 Laboratory results interpreted by me: 12/08/19 12/08/19 05:13 06:22 WBC 14.2 H Plt Count 468 H Absolute Lymphs (auto) 5.5 H Chloride 111 H Glucose 137 H ALT 39 H Salicylates < 1.0 L Acetaminophen < 10 L Discharge - Discharge Clinical Impression: Heroin abuse, Dehydration Condition: Good Disposition: HOME, SELF-CARE Prescriptions: Naloxone HCl 2 mg IJ PRN PRN #1 auto.injct PRN Reason: Referrals: [facility] [Outside] - Follow up as needed
--- NOTE | 2019-12-08 05:59 | RADIOLOGY REPORT (SQ) ---
EXAM DESCRIPTION: XR CHEST 1 VIEW COMPLETED DATE/TME: 12/08/2019 05:16 CLINICAL HISTORY: 24 years, Female, ivdu sob COMPARISON: February 17, 2018 NUMBER OF VIEWS: 1 TECHNIQUE: Portable AP upright view of the chest was obtained at 5:35 AM. LIMITATIONS: None. FINDINGS: The heart size is normal and the lungs are clear. There is no evidence of pleural effusion or pneumothorax. IMPRESSION: No acute abnormality as above. copyright 2010 [employer]- All Rights Reserved
[2019-12-08 06:58] LABS: ALBUMIN 3.8 g/dL (3.5-5.0); ALKALINE PHOSPHATASE 73 U/L (38-126); ANION GAP 6 (5-19); ASPARTATE AMINO TRANSFERASE 33 U/L (14-36); BLOOD UREA NITROGEN 16 mg/dL (7-20); CALCIUM 8.6 mg/dL (8.4-10.2); CARBON DIOXIDE 22 mmol/L (22-30); CHLORIDE 111 mmol/L (98-107); CREATINE KINASE 71 U/L (30-135); GLUCOSE 137 mg/dL (75-110); POTASSIUM 3.7 mmol/L (3.6-5.0); TOTAL PROTEIN 7.2 g/dL (6.3-8.2)
[2019-12-08 06:59] LABS: ACETAMINOPHEN < 10 ug/mL (10-30); SALICYLATE < 1.0 mg/dL (2.0-20.0)
[2019-12-08 08:07] VITALS: BP 117/74
[2019-12-08 08:34] LABS: URINE BARBITURATES SCREEN NEGATIVE; URINE BENZODIAZEPINES SCREEN NEGATIVE; URINE COCAINE SCREEN NEGATIVE; URINE METHADONE SCREEN NEGATIVE; URINE PHENCYCLIDINE SCREEN NEGATIVE
[2019-12-08 09:10] LABS: URINE MARIJUANA (THC) SCREEN UNCONFIRMED POSITIVE
--- NOTE | 2019-12-09 01:14 | EKG REPORT ---
SEVERITY:- BORDERLINE ECG - SINUS RHYTHM SHORT SD INTERVAL, ACCELERATED AV CONDUCTION : Confirmed by: Tu Lorenzana 09-Dec-2019 01:12:46
== END 2019-12-08 08:10 | disposition home or self-care (01) ==
LOC: ER 05:11
DX: F11.10 Opioid abuse, uncomplicated (principal); E86.0 Dehydration; R00.0 Tachycardia, unspecified; R53.83 Other fatigue; F17.200 Nicotine dependence, unspecified, uncomplicated
CPT/HCPCS: 93005; 99284; 96361; 96374; 36415; 82550; 83690; 80307 ×3; 84443; 84703; 85025; 85610; 85730; 80053; 71045; 93010; J2060; J7030